=== PATIENT | female | born 1965 ===

== ENCOUNTER 2023-04-04 17:48 | Inpatient (IN) | payer OTHER, SELFPAY ==
[2023-04-04 18:00] VITALS: BP 117/81; PULSE 78; RESP 18; TEMP 36.9; O2SAT 99
[2023-04-04 18:02] VITALS: BMI 21.2
[2023-04-04] MEDS: nicotine 4 mg lozenge MUCOUS MEM ×2 (20:03→22:44)
[2023-04-04 20:24] VITALS: BP 126/72; PULSE 81; RESP 16; TEMP 36.9; O2SAT 94
[2023-04-04] MEDS: trazodone 50 mg Tablet PO ×2 (22:44→23:20)
[2023-04-04] MEDS: gabapentin 300 mg Capsule PO (22:44)
[2023-04-04] MEDS: OLANZapine 5 mg ODT PO (23:20)
[2023-04-04] MEDS: blistex lip oint 7 gm Tube 1 APPLIC TOPICAL (23:25)
[2023-04-05 06:00] VITALS: BP 98/60; PULSE 70; RESP 17; TEMP 37.2; O2SAT 98
[2023-04-05] MEDS: atorvastatin 40 mg Tablet 20 MG PO (09:29)
[2023-04-05] MEDS: nicotine 4 mg lozenge MUCOUS MEM ×2 (09:29→15:37)
[2023-04-05] MEDS: pantoprazole DR 40 mg Tablet PO (09:29)
[2023-04-05] MEDS: gabapentin 300 mg Capsule PO ×2 (09:29→17:59)
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
[2023-04-05 14:00] VITALS: BP 112/79; PULSE 77; RESP 18; TEMP 36.8; O2SAT 99
[2023-04-05] MEDS: meloxicam 7.5 mg tablet PO (17:59)
[2023-04-05] MEDS: quetiapine 100 mg Tablet 200 MG PO (20:08)
[2023-04-05 20:40] VITALS: BP 129/83; PULSE 75; RESP 16; TEMP 36.8; O2SAT 98
[2023-04-06 06:00] VITALS: BP 99/68; PULSE 82; RESP 16; TEMP 36.9; O2SAT 98
[2023-04-06] MEDS: gabapentin 300 mg Capsule PO ×2 (09:01→17:53)
[2023-04-06] MEDS: atorvastatin 40 mg Tablet 20 MG PO (09:01)
[2023-04-06] MEDS: cetirizine 10 mg Tablet PO (09:02)
[2023-04-06] MEDS: meloxicam 7.5 mg tablet PO ×2 (09:36→17:53)
[2023-04-06] MEDS: nicotine 4 mg lozenge MUCOUS MEM (10:38)
[2023-04-06 14:00] VITALS: BP 103/66; PULSE 67; RESP 16; TEMP 37.1; O2SAT 96
--- NOTE | 2023-04-06 15:54 | P.NPUPN_ITS ---
Subjective NPU Subjective: Patient is a 57-year-old white female with an extended history of depression who was admitted for suicidal thoughts and worsening depression which was occurring in the context of the patient actively receiving ECT for treatment of depression. The patient had reported that there was no inpatient psychiatric unit available in [place] and she had also reported feeling depressed currently. She states that she had had 2 previous trials of transcranial magnetic stimulation that had been helpful for her depression and stated that she would like to resume ECT to treat her refractory depression. She had reported having some problems with memory. She had reported receiving unilateral ECT.. Staff notes the patient had continue to remain isolative on the milieu. She had reported no new changes in medications over the past few months. Mental Status Exam MSE Comments: This is a well-nourished well-developed white female in hospital scrubs with limited grooming and eye contact. Absent dentition. No abnormal movements except for mild psychomotor retardation. Cooperative with exam in mild distress. Speech was decreased rate and volume with frequent pauses. Mood described as depressed, affect was flat. Thought process was organized. Thought content: Patient denied homicidal or suicidal ideation today. there were no delusions reported or noted, she denied any auditory or visual hallucinations. Attention and concentration were impaired and memory was limited but none were formally tested. Immediate recall of 3 words was 3 out of 3. 1 out of 3 words were recalled after 5 minutes. She is alert and oriented x3. Insight, judgment and impulse control were impaired. Vitals/I&O/Wt Last Vital Signs Temp 98.8 F 04/06/23 14:00 Pulse 67 04/06/23 14:00 Resp 16 04/06/23 14:00 BP 103/66 04/06/23 14:00 Pulse Ox 96 04/06/23 14:00 O2 Del Method Room Air 04/05/23 14:00 Weight last 48 hrs Weight 58.96 kg Weight 54.204 kg A&P Assessment and plan (1) Major depressive disorder, recurrent: (2) PTSD (post-traumatic stress disorder): Plan This is a 57-year-old white female with unclear history of depression currently reportedly receiving ECT with continued depression and suicidal thoughts here for safety. 1. Continue current medications, need further collateral to discuss medication options. 2. Continue every 15 minute checks for safety. 3. Encourage individual, group and milieu therapy. 4. Contact outpatient/ECT team and consider restarting this treatment, also discuss use of TMS as it had been successful in the past. Involuntary Hold Information 96 Hour Hold: 96 Hour Involuntary Admission: No Attestations NPU Medical Necessity Statement*: Inpatient psychiatric hospitalization is medically necessary and the clinically appropriate intervention at this time. We will monitor medications and make changes as indicated. She will be in the hospital for over 2 midnights. Likely length of stay 4 to 6 days. Coding Level of Care Code Acute Code for g Fwd Diagnoses Major depressive disorder, recurrent F33.9 PTSD (post-traumatic stress disorder) F43.10
[2023-04-06 19:49] VITALS: BP 113/77; PULSE 95; RESP 18; TEMP 36.8; O2SAT 97
[2023-04-06] MEDS: pantoprazole DR 40 mg Tablet PO (21:46)
[2023-04-06] MEDS: quetiapine 100 mg Tablet 200 MG PO (21:46)
[2023-04-07 06:00] VITALS: BP 105/70; PULSE 79; RESP 18; TEMP 36.2; O2SAT 99
[2023-04-07] MEDS: gabapentin 300 mg Capsule PO ×2 (08:25→21:20)
[2023-04-07] MEDS: atorvastatin 40 mg Tablet 20 MG PO (08:25)
[2023-04-07] MEDS: cetirizine 10 mg Tablet PO (08:25)
[2023-04-07] MEDS: meloxicam 7.5 mg tablet PO ×2 (08:25→21:21)
[2023-04-07] MEDS: pantoprazole DR 40 mg Tablet PO (08:25)
[2023-04-07] MEDS: nicotine 4 mg lozenge MUCOUS MEM ×2 (13:20→21:20)
[2023-04-07 14:00] VITALS: BP 120/76; PULSE 84; RESP 16; TEMP 36.9; O2SAT 96
--- NOTE | 2023-04-07 15:16 | W.PM.NPUPNS ---
Subjective NPU Subjective: Patient is a 57-year-old white female with an extended history of depression who was admitted for suicidal thoughts and worsening depression which was occurring in the context of the patient actively receiving ECT for treatment of depression. The patient continued to report depressed mood. She minimized suicidal ideation at this time. She had reported a long and intermittent history of sadness. She had endorsed symptoms of PTSD for several years including nightmares and flashbacks and frequent avoidance of places that reminded her of her trauma. She had reported having witnessed the completed suicide. She had continued to isolate herself on the milieu. She reported continued feelings of hopelessness. She had reported significant problems still with memory and stated that she had had no improvement with her memory since her ECT had begun. She had endorsed compliance with her medications prior to admission. Mental Status Exam MSE Comments: This is a well-nourished well-developed white female in hospital scrubs with limited grooming and eye contact. Absent dentition. No abnormal movements except for moderate psychomotor retardation. Cooperative with exam in mild distress. Speech was decreased rate and volume with frequent pauses. Mood described as depressed, affect was restricted. Thought process was organized. Thought content: Patient denied homicidal or suicidal ideation today. there were no delusions reported or noted, she denied any auditory or visual hallucinations. Attention and concentration were impaired and memory was limited but none were formally tested. She is alert and oriented to person, place but not date or day of the week. Insight, judgment and impulse control were impaired. Vitals/I&O/Wt Last Vital Signs Temp 98.5 F 04/07/23 14:00 Pulse 84 04/07/23 14:00 Resp 16 04/07/23 14:00 BP 120/76 04/07/23 14:00 Pulse Ox 96 04/07/23 14:00 O2 Del Method Room Air 04/05/23 14:00 A&P Assessment and plan (1) Major depressive disorder, recurrent: (2) PTSD (post-traumatic stress disorder): Plan This is a 57-year-old white female with unclear history of depression currently reportedly receiving ECT with continued depression and suicidal thoughts here for safety. 1. Continue current medications with increase in seroquel to 250mg at night. 2. Continue every 15 minute checks for safety. 3. Encourage individual, group and milieu therapy. 4. Contact outpatient/ECT team and consider restarting this treatment, also discuss use of TMS as it had been successful in the past. Involuntary Hold Information 96 Hour Hold: 96 Hour Involuntary Admission: No Attestations NPU Medical Necessity Statement*: Inpatient psychiatric hospitalization is medically necessary and the clinically appropriate intervention at this time. We will monitor medications and make changes as indicated. She will be in the hospital for over 2 midnights. Likely length of stay 4 to 6 days. Coding Level of Care Code Acute Code for g Fwd Diagnoses Major depressive disorder, recurrent F33.9 PTSD (post-traumatic stress disorder) F43.10
[2023-04-07] MEDS: hyDROXYzine 25 mg Capsule 50 MG PO (19:20)
[2023-04-07] MEDS: quetiapine 100 mg Tablet 250 MG PO (21:21)
[2023-04-07 21:29] VITALS: BP 129/90; PULSE 76; RESP 17; TEMP 36.9; O2SAT 99
[2023-04-08 06:00] VITALS: BP 118/71; PULSE 64; RESP 18; TEMP 36.4; O2SAT 98
[2023-04-08] MEDS: cetirizine 10 mg Tablet PO (08:12)
[2023-04-08] MEDS: meloxicam 7.5 mg tablet PO ×2 (08:12→21:02)
[2023-04-08] MEDS: pantoprazole DR 40 mg Tablet PO (08:13)
[2023-04-08] MEDS: gabapentin 300 mg Capsule PO ×2 (08:13→21:03)
[2023-04-08] MEDS: atorvastatin 40 mg Tablet 20 MG PO (08:13)
[2023-04-08] MEDS: hyDROXYzine 25 mg Capsule 50 MG PO (13:26)
[2023-04-08 14:00] VITALS: BP 114/67; PULSE 56; RESP 16; TEMP 37.3; O2SAT 99
[2023-04-08] MEDS: nicotine 4 mg lozenge MUCOUS MEM ×2 (16:59→21:03)
--- NOTE | 2023-04-08 18:18 | W.PM.NPUPNS ---
Subjective NPU Subjective: Patient is a 57-year-old white female with an extended history of depression who was admitted for suicidal thoughts and worsening depression which was occurring in the context of the patient actively receiving ECT for treatment of depression. The patient had reported that she had severe problems with her ECT and had started to feel more depressed and suicidal. She reports continued depression but denies any suicidal ideation. She had requested that she be sent to another provider on an outpatient basis instead of her current psychiatrist. She had continue to report feelings of hopelessness. She had endorsed depressed mood and frequent recurring thoughts about her emotional trauma. She had reported having chronic periods of sadness and had reported multiple medication trials. Mental Status Exam MSE Comments: This is a well-nourished well-developed white female in hospital scrubs with limited grooming and eye contact. Absent dentition. No abnormal movements except for signficant psychomotor retardation. Cooperative with exam in mild distress. Speech was decreased rate and normal volume with less frequent pauses. Mood remained depressed, affect was restricted. Thought process was organized. Thought content: Patient denied homicidal or suicidal ideation today. there were no delusions reported or noted, she denied any auditory or visual hallucinations. Attention and concentration were impaired and memory was limited but none were formally tested. She is alert and oriented to person, place but not date or day of the week. Insight, judgment and impulse control were impaired. Vitals/I&O/Wt Last Vital Signs Temp 99.1 F 04/08/23 14:00 Pulse 56 L 04/08/23 14:00 Resp 16 04/08/23 14:00 BP 114/67 04/08/23 14:00 Pulse Ox 99 04/08/23 14:00 O2 Del Method Room Air 04/08/23 06:00 A&P Assessment and plan (1) Major depressive disorder, recurrent: (2) PTSD (post-traumatic stress disorder): Plan This is a 57-year-old white female with unclear history of depression currently reportedly receiving ECT with continued depression and suicidal thoughts here for safety. 1. Continue Seroquel 250mg at night and viibryd 40mg daily. 2. Continue every 15 minute checks for safety. 3. Encourage individual, group and milieu therapy. 4. Contact outpatient/ECT team and consider restarting this treatment, also discuss use of TMS as it had been successful in the past. Consider Spravato. Involuntary Hold Information 96 Hour Hold: 96 Hour Involuntary Admission: No Attestations NPU Medical Necessity Statement*: Inpatient psychiatric hospitalization is medically necessary and the clinically appropriate intervention at this time. We will monitor medications and make changes as indicated. Likely length of stay 4 to 6 days. Coding Level of Care Code Acute Code for Chg Fwd Diagnoses Major depressive disorder, recurrent F33.9 PTSD (post-traumatic stress disorder) F43.10
[2023-04-08 19:39] VITALS: BP 124/82; PULSE 90; RESP 17; TEMP 36.9; O2SAT 98
[2023-04-08] MEDS: quetiapine 100 mg Tablet 250 MG PO (21:03)
[2023-04-09 06:00] VITALS: BP 109/72; PULSE 76; RESP 16; TEMP 37; O2SAT 98
[2023-04-09] MEDS: atorvastatin 40 mg Tablet 20 MG PO (09:15)
[2023-04-09] MEDS: meloxicam 7.5 mg tablet PO ×2 (09:15→21:19)
[2023-04-09] MEDS: pantoprazole DR 40 mg Tablet PO (09:15)
[2023-04-09] MEDS: cetirizine 10 mg Tablet PO (09:15)
[2023-04-09] MEDS: gabapentin 300 mg Capsule PO ×2 (09:16→21:19)
[2023-04-09] MEDS: nicotine 4 mg lozenge MUCOUS MEM ×4 (09:18→21:32)
[2023-04-09 14:00] VITALS: BP 133/86; PULSE 110; RESP 18; TEMP 36.8; O2SAT 100
--- NOTE | 2023-04-09 16:51 | P.NPUPN_ITS ---
Subjective NPU Subjective: Patient is a 57-year-old white female with an extended history of depression who was admitted for suicidal thoughts and worsening depression which was occurring in the context of the patient actively receiving ECT for treatment of depression. She reported having chronic problems with tinnitus. She reports that she was excessively sensitive to loud noises and reported significant pain in her ears. She reported these problems for 5 years. She had expressed no desire to returning restart ECT. She had continued to report significant memory problems. She had continued to isolate herself on the milieu. She had denied any suicidal thoughts but continued to endorse hopelessness and reported worry about her having recently left the home. She was agreeable to alternative treatments for depression and this was discussed with her in detail including TMS and Spravato. Mental Status Exam MSE Comments: This is a well-nourished well-developed white female in hospital scrubs with l imited grooming and eye contact. Absent dentition. No abnormal movements except for severe psychomotor retardation. Cooperative with exam in mild distress. Speech was decreased rate and normal volume with less word finding difficulties. Mood remained depressed, affect was restricted in range. Thought process was organized. Thought content: Patient denied homicidal or suicidal ideation today. there were no delusions reported or noted, she denied any auditory or visual hallucinations. Attention and concentration were impaired and memory was limited but none were formally tested. She is alert and oriented to person, place but not date or day of the week. Insight, judgment and impulse control remained impaired. Vitals/I&O/Wt Last Vital Signs Temp 98.2 F 04/09/23 14:00 Pulse 110 H 04/09/23 14:00 Resp 18 04/09/23 14:00 BP 133/86 04/09/23 14:00 Pulse Ox 100 04/09/23 14:00 O2 Del Method Room Air 04/09/23 14:00 A&P Assessment and plan (1) Major depressive disorder, recurrent: (2) PTSD (post-traumatic stress disorder): Plan This is a 57-year-old white female with unclear history of depression currently reportedly receiving ECT with continued depression and suicidal thoughts here for safety. 1. Increase seroquel 300mg at night and continue viibryd 40mg daily. Consider low dose stimulant use to target depression. 2. Continue every 15 minute checks for safety. 3. Encourage individual, group and milieu therapy. 4. Contact outpatient/ECT team and consider restarting this treatment, also discuss use of TMS as it had been successful in the past. Consider Spravato.- Found potential providers for spravato near patient's home. Patient agreeable to pursuing this option for refractory depression. Involuntary Hold Information 96 Hour Hold: 96 Hour Involuntary Admission: No Attestations NPU Medical Necessity Statement*: Inpatient psychiatric hospitalization is medically necessary and the clinically appropriate intervention at this time. We will monitor medications and make changes as indicated. Likely length of stay 4 to 6 days. Coding Level of Care Code Acute Code for Chg Fwd Diagnoses Major depressive disorder, recurrent F33.9 PTSD (post-traumatic stress disorder) F43.10
[2023-04-09 19:42] VITALS: BP 126/81; PULSE 83; RESP 16; TEMP 36.8; O2SAT 98
[2023-04-09] MEDS: quetiapine 100 mg Tablet 300 MG PO (21:18)
[2023-04-09] MEDS: ropinirole 2 mg Tablet PO (21:19)
[2023-04-09] MEDS: trazodone 50 mg Tablet PO (21:19)
[2023-04-10 06:00] VITALS: BP 126/73; PULSE 82; RESP 16; TEMP 36.9; O2SAT 95
[2023-04-10] MEDS: pantoprazole DR 40 mg Tablet PO (08:16)
[2023-04-10] MEDS: nicotine 4 mg lozenge MUCOUS MEM ×3 (08:16→20:38)
[2023-04-10] MEDS: meloxicam 7.5 mg tablet PO ×2 (08:16→20:37)
[2023-04-10] MEDS: cetirizine 10 mg Tablet PO (08:16)
[2023-04-10] MEDS: atorvastatin 40 mg Tablet 20 MG PO (08:16)
[2023-04-10] MEDS: gabapentin 300 mg Capsule PO ×2 (08:16→20:37)
[2023-04-10 14:00] VITALS: BP 98/71; PULSE 83; RESP 18; TEMP 36.9; O2SAT 98
--- NOTE | 2023-04-10 18:04 | P.NPUPN_ITS ---
Subjective NPU Subjective: Patient is a 57-year-old white female with an extended history of depression who was admitted for suicidal thoughts and worsening depression which was occurring in the context of the patient actively receiving ECT for treatment of depression. She endorsed no suicidal thoughts but continued to appear isolative in her room. She had reported that her life is FUBAR and stated that she was spending time writing about her story of her life. she had reported improved sleep. She continued to report that the tinnitus was causing her pain. She had been hopeful about consideration for ketamine for treating depression and stated that she did not wish to see her previous psychiatrist and had no intention of consideration for ECT. She reported that she needed some counseling and stated that she had reached out to family members and stated that she would likely be able to stay with them as they could provide her some support as she states that her had likely left her after 32 years of marriage. Patient had expressed desire to return home. She had reported significant pain issues. Mental Status Exam MSE Comments: This is a well-nourished well-developed white female in hospital scrubs with poor grooming and poor eye contact. Absent dentition. She showed evidence of psychomotor retardation. She was cooperative with exam in mild distress. Speech was decreased in rate and normal volume with continued word finding difficulties. Mood remained depressed, affect was restricted in range. Thought process was organized. Thought content: Patient denied homicidal or suicidal ideation today. there were no delusions reported or noted, she denied any auditory or visual hallucinations. Attention and concentration were impaired and memory was limited but none were formally tested. She was AOx3, Insight was improving, judgment and impulse control remained impaired. Vitals/I&O/Wt Last Vital Signs Temp 98.4 F 04/10/23 14:00 Pulse 83 04/10/23 14:00 Resp 18 04/10/23 14:00 BP 98/71 04/10/23 14:00 Pulse Ox 98 04/10/23 14:00 O2 Del Method Room Air 04/10/23 14:00 A&P Assessment and plan (1) Major depressive disorder, recurrent: (2) PTSD (post-traumatic stress disorder): Plan This is a 57-year-old white female with unclear history of depression currently reportedly receiving ECT with continued depression and suicidal thoughts here for safety. 1. Continue seroquel 300mg at night and continue viibryd 40mg daily. Consider low dose stimulant use to target depression. 2. Continue every 15 minute checks for safety. 3. Encourage individual, group and milieu therapy. 4. Contact outpatient/ECT team and consider restarting this treatment, also discuss use of TMS as it had been successful in the past. Referrals for Spravato treatment. Patient agreeable to pursuing this option for refractory depression. Involuntary Hold Information 96 Hour Hold: 96 Hour Involuntary Admission: No Attestations NPU Medical Necessity Statement*: Inpatient psychiatric hospitalization is medically necessary and the clinically appropriate intervention at this time. We will monitor medications and make changes as indicated. Her Likely length of stay is 4 to 6 days. Coding Level of Care Code Acute Code for [facility] Fwd Diagnoses Major depressive disorder, recurrent F33.9 PTSD (post-traumatic stress disorder) F43.10
[2023-04-10 19:37] VITALS: BP 134/87; PULSE 77; RESP 16; TEMP 36.4; O2SAT 97
[2023-04-10] MEDS: trazodone 50 mg Tablet PO (20:37)
[2023-04-10] MEDS: quetiapine 100 mg Tablet 300 MG PO (20:38)
[2023-04-11 06:00] VITALS: BP 101/68; PULSE 65; RESP 16; TEMP 37.2; O2SAT 99
[2023-04-11] MEDS: cetirizine 10 mg Tablet PO (08:59)
[2023-04-11] MEDS: pantoprazole DR 40 mg Tablet PO (09:00)
[2023-04-11] MEDS: gabapentin 300 mg Capsule PO ×3 (09:00→20:51)
[2023-04-11] MEDS: meloxicam 7.5 mg tablet PO ×2 (09:00→20:52)
[2023-04-11] MEDS: nicotine 4 mg lozenge MUCOUS MEM ×3 (09:00→19:29)
[2023-04-11] MEDS: atorvastatin 40 mg Tablet 20 MG PO (09:00)
[2023-04-11 14:00] VITALS: BP 117/81; PULSE 97; RESP 18; TEMP 36.4; O2SAT 98
--- NOTE | 2023-04-11 16:33 | P.NPUPN_ITS ---
Subjective NPU Subjective: Patient is a 57-year-old white female with an extended history of depression who was admitted for suicidal thoughts and worsening depression which was occurring in the context of the patient actively receiving ECT for treatment of depression. She endorsed no suicidal thoughts but continued to appear isolative in her room. She was agreeable to consideration for Spravato for treatment resistant depression and was refusing ECT. She had minimized having any thoughts of suicide. She reported no improvement with the addition of Seroquel. She continued to come planing about having problems with memory. She had continued to isolate herself in her room. She continued to complain of tinni tus. Mental Status Exam MSE Comments: This is a well-nourished well-developed white female in hospital scrubs with limited grooming and fair eye contact. Absent dentition. She continued to showed evidence of mild psychomotor retardation. She was cooperative with exam in no acute distress. Speech was normal in rate and normal volume and spontaneous. Mood reported fine. affect eemained mildly restricted. Thought process was organized. Thought content: Patient denied homicidal or suicidal ideation. there were no delusions reported or noted, she denied any auditory or visual hallucinations. Attention and concentration were impaired and memory was limited but none were formally tested. She was AOx3, Insight was improving, judgment and impulse control remained was adequate. Vitals/I&O/Wt Last Vital Signs Temp 98.1 F 04/12/23 06:00 Pulse 74 04/12/23 06:00 Resp 16 04/12/23 06:00 BP 97/68 04/12/23 06:00 Pulse Ox 98 04/12/23 06:00 O2 Del Method Room Air 04/12/23 06:00 A&P Assessment and plan (1) Major depressive disorder, recurrent: (2) PTSD (post-traumatic stress disorder): Plan This is a 57-year-old white female with unclear history of depression currently reportedly receiving ECT with continued depression and suicidal thoughts here for safety. 1. Continue seroquel 300mg at night and continue viibryd 40mg daily. Consider low dose stimulant use to target depression. 2. Continue every 15 minute checks for safety. 3. Encourage individual, group and milieu therapy. 4. Contact outpatient/ECT team and consider restarting this treatment, also discuss use of TMS as it had been successful in the past. Referrals for Spravato treatment. Patient agreeable to pursuing this option for refractory depression. 5. Recommend psychotherapy for PTSD related issues. Involuntary Hold Information 96 Hour Hold: 96 Hour Involuntary Admission: No Attestations NPU Medical Necessity Statement*: Inpatient psychiatric hospitalization is medically necessary and the clinically appropriate intervention at this time. We will monitor medications and make changes as indicated. Her Likely length of stay is 1-2 days. Coding Level of Care Code Acute Code for [facility] Fwd Diagnoses Major depressive disorder, recurrent F33.9 PTSD (post-traumatic stress disorder) F43.10
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
[2023-04-11 20:25] VITALS: BP 150/90; PULSE 79; RESP 18; TEMP 36.5; O2SAT 98
[2023-04-11] MEDS: quetiapine 100 mg Tablet 300 MG PO (20:52)
[2023-04-12 06:00] VITALS: BP 97/68; PULSE 74; RESP 16; TEMP 36.7; O2SAT 98
[2023-04-12] MEDS: gabapentin 300 mg Capsule PO (08:17)
[2023-04-12] MEDS: cetirizine 10 mg Tablet PO (08:17)
[2023-04-12] MEDS: meloxicam 7.5 mg tablet PO (08:17)
[2023-04-12] MEDS: atorvastatin 40 mg Tablet 20 MG PO (08:18)
[2023-04-12] MEDS: pantoprazole DR 40 mg Tablet PO (08:19)
[2023-04-12] MEDS: nicotine 4 mg lozenge MUCOUS MEM (08:24)
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
[2023-04-12 11:17] VITALS: BP 97/68; PULSE 74; RESP 16; TEMP 36.7; O2SAT 98
== END 2023-04-12 11:15 | disposition home or self-care (01) | DRG 885 ==
PROVIDERS: Admitting Provider Psychiatry & Neurology Psychiatry; Visit Provider Psychiatry & Neurology Psychiatry
DX: F33.9 Major depressive disorder, recurrent, unspecified (principal); R45.851 Suicidal ideations; F17.290 Nicotine dependence, other tobacco product, uncomplicated; F43.10 Post-traumatic stress disorder, unspecified
CPT/HCPCS: 97150; 97165; 99238